=== PATIENT | male | born 1980 | race Caucasian/White ===

== ENCOUNTER 2022-05-04 10:30 | Emergency (ER) | payer SELFPAY ==
[~2022-05-04] VITALS: Ht 175.3 cm; Wt 68.0 kg
[2022-05-04 10:35] VITALS: BP 122/72
[2022-05-04] MEDS ORDERED: ACETAMINOPHEN 650MG/20.3ML UDC PO ONE (11:30)
== END 2022-05-04 14:08 | disposition home or self-care (01) ==
LOC: ER 10:30
DX: M79.672 Pain in left foot (principal); F10.129 Alcohol abuse with intoxication, unspecified; Y90.9 Presence of alcohol in blood, level not specified
CPT/HCPCS: 73630; 99283